=== PATIENT | male | born 1995 | race Two or more races ===

== ENCOUNTER 2017-07-04 19:39 | Inpatient (IN) | payer OTHER ==
[~2017-07-04] VITALS: Ht 167.6 cm; Wt 64.6 kg
[2017-07-04] MEDS ORDERED: LORazepam 2 MG/ML, 1ML ONE ×2 (19:56→22:03)
[2017-07-04] MEDS ORDERED: NALOXONE 0.4 MG/ML, 1ML IVPush ONE (20:00)
[2017-07-04] MEDS ORDERED: LORazepam 2 MG/ML, 1ML IVPush ONE ×2 (20:00→23:00)
[2017-07-04] MEDS ORDERED: SODIUM CHLORIDE FLUSH 10ML SYR IVF ONE (20:00)
[2017-07-04] MEDS ORDERED: OMNIPAQUE 350 MG/ML, 100ML BOTTLE ONE (21:04)
[2017-07-04 21:25] LABS: ALANINE AMINOTRANSFERASE 16 U/L (12-78); ALBUMIN 3.7 g/dL (3.4-5.0); ANION GAP 7 mmol/L (5-15); CALCIUM 8.2 mg/dL (8.5-10.1); CHLORIDE 108 mmol/L (98-107)
[2017-07-04 21:28] LABS: ALKALINE PHOSPHATASE 51 U/L (45-117); BILIRUBIN,TOTAL 0.6 mg/dL (0.2-1.0); CREATININE 1.01 mg/dL (0.7-1.3); TOTAL PROTEIN 6.7 g/dL (6.4-8.2)
[2017-07-04 21:29] LABS: BASOPHILS # (AUTO) 0.03 x10^3/uL (0-0.1); BASOPHILS % (AUTO) 0 % (0-1); EOSINOPHILS # (AUTO) 0.04 x10^3/uL (0-0.4); EOSINOPHILS % (AUTO) 1 % (1-7); LYMPHOCYTES # (AUTO) 0.68 x10^3/uL (1-3.4); LYMPHOCYTES % (AUTO) 8 % (22-44); MD NO; MEAN CORPUSCULAR HEMOGLOBIN 30.6 pg (27.5-34.5); MEAN CORPUSCULAR HGB CONC 33.9 g/dL (33.2-36.2); MEAN CORPUSCULAR VOLUME 90.2 fL (81-97); MEAN PLATELET VOLUME 8.1 fL (7.4-10.4); MONOCYTES # (AUTO) 0.33 x10^3/uL (0.2-0.8); MONOCYTES % (AUTO) 4 % (2-9); NEUTROPHILS # (AUTO) 7.45 x10^3/uL (1.8-6.8); NEUTROPHILS % (AUTO) 87 % (42-75); PLATELET COUNT 189 x10^3/uL (130-400); RED BLOOD COUNT 4.82 x10^6/uL (4.38-5.82)
[2017-07-04] MEDS ORDERED: LEVETIRACETAM 1,000 MG in SODIUM CHLORIDE 0.9% 100 ML IV ONE (22:30)
[2017-07-04 23:18] LABS: AMPHETAMINE SCREEN, URINE Negative (Negative); BARBITURATE SCREEN, URINE Negative (Negative); BENZODIAZEPINE SCREEN, URINE Positive (Negative); CANNABINOID SCREEN, URINE Positive (Negative); COCAINE SCREEN, URINE Negative (Negative); METHADONE SCREEN, URINE Negative (Negative); OPIATE SCREEN, URINE Negative (Negative)
[2017-07-05] MEDS ORDERED: SODIUM CHLORIDE 0.9% 1,000 ML IV ONE (00:30)
[2017-07-05] MEDS ORDERED: ONDANSETRON 2MG/ML, 2ML IVPush PRN ×2 (00:30→02:00)
[2017-07-05] MEDS ORDERED: ACETAMINOPHEN 325 MG TABLET PO PRN (02:00)
[2017-07-05] MEDS: SODIUM CHLORIDE 0.9% 1,000 ML IV SCH ×4 (02:20→23:12)
[2017-07-05 02:28] VITALS: BP 99/62
[2017-07-05] MEDS: LEVETIRACETAM 500 MG in SODIUM CHLORIDE 0.9% 100 ML IV SCH ×2 (02:30→15:37)
[2017-07-05 07:49] VITALS: BP 122/74
[2017-07-05 13:04] VITALS: BP 114/64
[2017-07-05 20:00] VITALS: BP 120/72
[2017-07-05] MEDS ORDERED: ZIPRASIDONE 20 MG INJ IM ONE (20:30)
[2017-07-06] MEDS: LEVETIRACETAM 500 MG in SODIUM CHLORIDE 0.9% 100 ML IV SCH (02:22)
[2017-07-06 02:30] VITALS: BP 113/59
[2017-07-06 07:12] VITALS: BP 130/67
[2017-07-06] MEDS: SODIUM CHLORIDE 0.9% 1,000 ML IV SCH (08:30)
[2017-07-06 15:32] VITALS: BP 101/55
[2017-07-06] MEDS: SERTRALINE 50MG TABLET PO SCH (17:41)
[2017-07-06 20:10] VITALS: BP 114/68
[2017-07-07 02:35] VITALS: BP 117/73
[2017-07-07] MEDS: SERTRALINE 50MG TABLET PO SCH (08:23)
[2017-07-07 09:10] VITALS: BP 124/77
[2017-07-07 14:15] VITALS: BP 122/77
[2017-07-08 01:50] VITALS: BP 110/65
[2017-07-08 07:53] VITALS: BP 112/70
[2017-07-08] MEDS: SERTRALINE 50MG TABLET PO SCH (09:14)
[2017-07-08 14:36] VITALS: BP 116/72
[2017-07-08 19:31] VITALS: BP 119/81
[2017-07-09 01:19] VITALS: BP 109/60
[2017-07-09] MEDS: SERTRALINE 50MG TABLET PO SCH (07:15)
[2017-07-09 07:35] VITALS: BP 112/68
[2017-07-09 13:30] VITALS: BP 124/70
[2017-07-09 19:59] VITALS: BP 114/67
[2017-07-10 03:00] VITALS: BP 116/72
[2017-07-10 08:08] VITALS: BP 111/65
[2017-07-10] MEDS ORDERED: SERT50TA5 PO (08:56)
[2017-07-10] MEDS: SERTRALINE 50MG TABLET PO SCH (09:06)
[2017-07-10 14:17] VITALS: BP 121/81
== END 2017-07-10 15:12 | disposition home or self-care (01) | DRG 881 ==
LOC: ED 23:59 → EDIP 07-05 00:31 → 4EST 07-05 01:55 → DCLOUNGE 07-10 15:00
PROVIDERS: ADMIT Hospitalist; ATTEND Hospitalist
DX: F32.9 Major depressive disorder, single episode, unspecified (principal); G40.209 Localization-related (focal) (partial) symptomatic epilepsy and epileptic syndromes with complex partial seizures, not intractable, without status epilepticus; R45.851 Suicidal ideations; G40.909 Epilepsy, unspecified, not intractable, without status epilepticus; F12.90 Cannabis use, unspecified, uncomplicated; F41.9 Anxiety disorder, unspecified; M54.2 Cervicalgia; Z78.1 Physical restraint status
CPT/HCPCS: 36415; 70450; 70496; 71010; 72125; 80053; 80307; 82962; 85025; 93005; 93306; 95819; 96361; 96374; 96375; 96376; J1953; J3486; Q9967; G0479; J2060; J7030

== ENCOUNTER 2019-08-06 11:23 | Emergency (ER) | payer OTHER ==
[~2019-08-06] VITALS: Ht 180.3 cm; Wt 64.8 kg
[~2019-08-06 11:23] MED LIST: SERT50TA28 PO
[2019-08-06] MEDS ORDERED: SODIUM CHLORIDE FLUSH 10ML SYR IVF ONE (12:00)
[2019-08-06] MEDS ORDERED: IBUPROFEN 200 MG TABLET PO ONE (12:00)
--- NOTE | 2019-08-06 12:05 | NUR ---
BEDSIDE REPORT TO BREAK KEVIN WOO.
[2019-08-06] MEDS ORDERED: DEXAMETHASONE 4 MG TABLET ONE (12:07)
[2019-08-06] MEDS ORDERED: IBUPROFEN 200 MG TABLET ONE (12:08)
[2019-08-06] MEDS ORDERED: CEFTRIAXONE PMX 1GM/50ML 50 ML ONE (12:09)
[2019-08-06] MEDS ORDERED: DEXAMETHASONE 4 MG/ML, 1ML ONE (12:23)
[2019-08-06 12:25] LABS: BASOPHILS # (AUTO) 0.07 x10^3/uL (0-0.1); BASOPHILS % (AUTO) 1 % (0-1); EOSINOPHILS # (AUTO) 0.01 x10^3/uL (0-0.4); EOSINOPHILS % (AUTO) 0 % (1-7); LYMPHOCYTES # (AUTO) 0.44 x10^3/uL (1-3.4); LYMPHOCYTES % (AUTO) 4 % (22-44); MD NO; MEAN CORPUSCULAR HEMOGLOBIN 31.4 pg (27.5-34.5); MEAN CORPUSCULAR HGB CONC 34.8 g/dL (33.2-36.2); MEAN CORPUSCULAR VOLUME 90.2 fL (81-97); MEAN PLATELET VOLUME 7.6 fL (7.4-10.4); MONOCYTES # (AUTO) 0.55 x10^3/uL (0.2-0.8); MONOCYTES % (AUTO) 5 % (2-9); NEUTROPHILS # (AUTO) 9.55 x10^3/uL (1.8-6.8); NEUTROPHILS % (AUTO) 90 % (42-75); PLATELET COUNT 180 x10^3/uL (130-400); RED BLOOD COUNT 5.35 x10^6/uL (4.38-5.82); RED CELL DISTRIBUTION WIDTH 12.9 % (9.4-14.8)
--- NOTE | 2019-08-06 12:27 | NUR ---
REPORT FROM BROOKE WOO. MEDS PER MAR, ABX INFUSING AFTER BC X2 DRAWN. VSS. CALL CURTIS IN REACH. CTM.
[2019-08-06 12:36] LABS: ANION GAP 5 mmol/L (5-15); CALCIUM 8.8 mg/dL (8.5-10.1); CHLORIDE 105 mmol/L (98-107); CREATININE 1.07 mg/dL (0.7-1.3)
[2019-08-06] MEDS ORDERED: CEFTRIAXONE PMX 1GM/50ML 50 ML IVPB ONE (13:00)
[2019-08-06] MEDS ORDERED: DEXAMETHASONE 4 MG/ML, 1ML IVPush ONE (13:00)
[2019-08-06] MEDS ORDERED: SODIUM CHLORIDE 0.9% 1,000ML IVBOLUS ONE (13:00)
--- NOTE | 2019-08-06 13:14 | NUR ---
REPORT RECEIVED FROM AMNA VICK.
--- NOTE | 2019-08-06 13:18 | NUR ---
IV ABX FINISHED INFUSING. BOLUS CONTINUES. [facility].
[2019-08-06 14:28] VITALS: BP 116/66
--- NOTE | 2019-08-06 14:28 | NUR ---
PT RESTING ON [facility]. VSS. IV FLUIDS INFUSING.
== END 2019-08-06 15:49 | disposition home or self-care (01) ==
LOC: ED 14:49
DX: J02.0 Streptococcal pharyngitis (principal)
CPT/HCPCS: 36415; 80048; 82040; 83605; 84145; 85025; 87040; 93005; 96365; 96375; 99284; J0696; J1100; J7030

== ENCOUNTER 2019-12-14 16:24 | Emergency (ER) | payer OTHER ==
[~2019-12-14] VITALS: Ht 182.9 cm; Wt 66.5 kg
[2019-12-14] MEDS ORDERED: HYDROmorphone 1 MG/ML, 1ML INJ ONE (16:59)
[2019-12-14] MEDS ORDERED: HYDROmorphone 1 MG/ML, 1ML INJ IM ONE (17:00)
[2019-12-14 17:02] VITALS: BP 123/66
--- NOTE | 2019-12-14 17:02 | NUR ---
PT SITTING AT EOB C/O LT SHOULDER PAIN, MEDICATED PER EMAR, RESPONDS APPROP TO STAFF, COMFORT MEASURES PROVIDED, CALL LIGHT WITHIN REACH.
--- NOTE | 2019-12-14 17:03 | NUR ---
PT TO RAD
[2019-12-14] MEDS ORDERED: KETOROLAC 30 MG/1 ML IM ONE (18:00)
[2019-12-14] MEDS ORDERED: KETOROLAC 30 MG/1 ML ONE (18:01)
--- NOTE | 2019-12-14 18:24 | NUR ---
Patient given sling/discharge instructions and Rx, they have confirmed that they understand the instructions. Patient ambulatory with steady gait.
== END 2019-12-14 18:25 | disposition home or self-care (01) ==
LOC: ED 17:45
DX: M75.52 Bursitis of left shoulder (principal); G89.11 Acute pain due to trauma; W01.0XXA Fall on same level from slipping, tripping and stumbling without subsequent striking against object, initial encounter; Y93.89 Activity, other specified; Y92.098 Other place in other non-institutional residence as the place of occurrence of the external cause; Y99.8 Other external cause status
CPT/HCPCS: 73030; 96372; 99284; J1170; J1885